=== PATIENT | female | born 1970 | race Caucasian/White ===

== ENCOUNTER 2017-03-26 11:45 | Emergency (ER) | payer OTHER ==
[~2017-03-26] VITALS: Ht 165.1 cm; Wt 79.0 kg
[~2017-03-26 11:45] MED LIST: FLUO20CA35 PO
[2017-03-26 11:52] VITALS: TEMP 37; Ht 165.1 cm; Wt 79.0 kg
[2017-03-26] MEDS ORDERED: SODIUM CHLORIDE 0.9% 1000ML 1,000 ML IV STA (12:17)
[2017-03-26 12:58] LABS: BASO % 0.9 %; BASO ABS # 0.05 K/uL (0-0.2); COMPLETE YES; EOS % 2.9 %; HEMATOCRIT 41.6 % (37-47); IG% 0.2 %; LYMPH % 37.8 %; LYMPH ABS # 2.21 K/uL (1.2-3.4); MEAN CELL VOLUME 93.5 fL (80-100); MEAN CORPUSCULAR HEMOGLOBIN 32.4 pg (25-34); MEAN CORPUSCULAR HGB CONC 34.6 g/dl (32-36); MEAN PLATELET VOLUME 9.7 fL (7.4-10.4); MONO % 8.4 %; NEUT % 49.8 %; PLATELET COUNT 283 K/uL (130-400); RED BLOOD COUNT 4.45 M/uL (4.2-5.4); WHITE BLOOD COUNT 5.84 K/uL (4.8-10.8)
[2017-03-26 13:07] LABS: PROTHROMBIN TIME (PATIENT) 10.3 SECONDS (9.0-12.0)
--- NOTE | 2017-03-26 13:10 | DIAGNOSTIC IMAGING REPORT ---
CT OF THE HEAD WITHOUT CONTRAST CLINICAL HISTORY: Headache. COMPARISON STUDY: No previous studies for comparison. CT DOSE: 638.56 mGycm TECHNIQUE: Helical axial images of the head were obtained without IV contrast. Automated exposure control was utilized for the study. A dose lowering technique was utilized adhering to the principles of ALARA. FINDINGS: No acute intracranial hemorrhage, midline shift or mass effect is present. Ventricular system is normal. Basilar cisterns are patent. There are no extra-axial collections. Brennan-white differentiation is maintained. There are no findings to suggest acute dural sinus thrombosis or acute territorial infarct. There are no significant calvarial abnormalities. Visualized portions of the sinuses and mastoid air cells are clear. IMPRESSION: No acute intracranial findings. Electronically signed by: South Luciano M.D. 03/26/2017 1:09 PM Dictated Date/Time: 03/26/2017 12:59 PM
[2017-03-26 13:15] LABS: CALCIUM 9.3 mg/dl (8.5-10.1); CREATININE 0.95 mg/dl (0.60-1.20); POTASSIUM 3.6 mmol/L (3.5-5.1)
[2017-03-26] MEDS ORDERED: XYLOCAINE 1%/SOD BICARB 20 ML VIAL INFIL ONE (13:41)
[2017-03-26 13:50] LABS: LYME DISEASE AB IGG NEG (NEG); LYME DISEASE AB IGM NEG (NEG)
[2017-03-26] MEDS ORDERED: DiphenhydrAMINE HCL 50 MG/ML VIAL IV STA (13:53)
[2017-03-26] MEDS ORDERED: PROCHLORPERAZINE 5 MG/ML 2 ML VIAL IV STA (13:53)
[2017-03-26 14:36] LABS: CSF CHEMISTRY TUBE # 2
[2017-03-26 14:48] LABS: CSF APPEARANCE CLEAR; CSF COLOR COLORLESS; CSF XANTHOCHROMIC NO XANTHOCHROMIA
[2017-03-26 14:55] LABS: CSF TOTAL PROTEIN 25.7 mg/dl (15.0-45.0)
[2017-03-26 15:39] VITALS: BP 138/74; PULSE 58; O2SAT 99
--- NOTE | 2017-03-26 19:18 | EMERGENCY ROOM VISIT NOTE ---
History Report prepared by Coby: Arnoldo Garrett Under the Supervision of: Dr. Charlie Peña M.D. First contact with patient: 11:59 Chief Complaint: HEADACHE Stated Complaint: HEADACHE FOR DAYS History of Present Illness The patient is a 46 year old female who presents to the Emergency Room with complaints of an intermittent headache that began 8 days ago. This has never happened to her before and she denies any past medical history of migraines. At this time, the patient was getting ready for bed when she suddenly experienced a global headache that "hit like lightning." She also was experiencing sensitivity to light and sound. With Ibuprofen and controlled breathing, she was able to go to sleep 45 minutes later. The next day, her headache improved to a dull sensation to the left side of her head that was not nearly as bad as the day before. This sensation then went away in the evening and she was headache free on Sunday. She then started to have another dull headache on Sunday that subsided afternoon. She was headache free on Sunday, and then it happened to her again on Sunday with her symptoms still being present currently. She believes that her headaches are worsened by yelling or bending over. She denies any fevers, vomiting, numbness, weakness, trouble with her speech, or trouble walking. She notes that she received a workup at her PCP office 2 months ago secondary to palpitations that was negative. She received an ECG that was negative for any cardiac abnormalities. They noted that she was borderline hypertensive and experiencing menopause. Her last menstrual period was over 1 year ago. She denies any other medical problems or current medications. Source of History: patient Onset: 8 days ago Position: head Symptom Intensity: moderate Quality: dull Timing: intermittent Modifying Factors (Worsening): movement (bending over) Associated Symptoms: No fevers, No vomiting, No weakness, No numbness Note: She denies any trouble with her speech or trouble walking. Review of Systems See HPI for pertinent positives & negatives. A total of 10 systems reviewed and were otherwise negative. Past Medical & Surgical Medical Problems: (1) Borderline hypertension Family History Patient reports no known family medical history. Social History Smoking Status: Current Some Day Smoker Smokeless Tobacco Use: No Drug Use: none Marital Status: single Housing Status: lives with family Occupation Status: employed Current/Historical Medications No Active Prescriptions or Reported Meds Allergies Coded Allergies: No Known Allergies (Verified , 01/18/10) Physical Exam Vital Signs Date Time Temp Pulse Resp B/P (MAP) Pulse Ox O2 Delivery O2 Flow Rate FiO2 03/26/17 15:39 58 18 138/74 99 03/26/17 14:50 66 18 153/95 98 Room Air 03/26/17 11:52 37.0 66 18 155/96 98 Room Air Physical Exam Constitutional: Vital signs reviewed. Eyes: Pupils are equal round reactive to light. Conjunctiva are noninjected. No papilledema bilaterally. ENT: Pharynx is clear without erythema or exudate. Mucous membranes are moist. Neck supple without meningeal signs. Respiratory: Clear to auscultation bilaterally. Breath sounds are equal bilaterally. Cardiovascular: Regular rate and rhythm. No rubs or gallops. GI: Soft, nondistended and nontender. Bowel sounds are present. Musculoskeletal: No peripheral edema. No lower extremity tenderness. Integumentary: No cyanosis. Neurological: The patient is awake and alert. Cranial nerves II-XII are intact. Motor is 5 out of 5 all extremities. Sensation is intact to light touch all extremities. Normal speech. No pronator drift. Psychiatric: Normal affect. Medical Decision & Procedures ER Provider Diagnostic Interpretation: Radiology results as stated below per my review and the radiologist's interpretation: CT OF THE HEAD WITHOUT CONTRAST CLINICAL HISTORY: Headache. COMPARISON STUDY: No previous studies for comparison. CT DOSE: 638.56 mGycm TECHNIQUE: Helical axial images of the head were obtained without IV contrast. Automated exposure control was utilized for the study. A dose lowering technique was utilized adhering to the principles of ALARA. FINDINGS: No acute intracranial hemorrhage, midline shift or mass effect is present. Ventricular system is normal. Basilar cisterns are patent. There are no extra-axial collections. Brennan-white differentiation is maintained. There are no findings to suggest acute dural sinus thrombosis or acute territorial infarct. There are no significant calvarial abnormalities. Visualized portions of the sinuses and mastoid air cells are clear. IMPRESSION: No acute intracranial findings. Electronically signed by: [place] Luciano M.D. 03/26/2017 1:09 PM Dictated Date/Time: 03/26/2017 12:59 PM Laboratory Results 03/26/17 12:35 Red Blood Count 4.45, Mean Corpuscular Volume 93.5, Mean Corpuscular Hemoglobin 32.4, Mean Corpuscular Hemoglobin Concent 34.6, Mean Platelet Volume 9.7, Neutrophils (%) (Auto) 49.8, Lymphocytes (%) (Auto) 37.8, Monocytes (%) (Auto) 8.4, Eosinophils (%) (Auto) 2.9, Basophils (%) (Auto) 0.9, Neutrophils # (Auto) 2.91, Lymphocytes # (Auto) 2.21, Monocytes # (Auto) 0.49, Eosinophils # (Auto) 0.17, Basophils # (Auto) 0.05 03/26/17 12:35 Test 03/26/17 12:15 03/26/17 12:35 03/26/17 13:48 Urine Test NEG (NEG) White Blood Count 5.84 K/uL (4.8-10.8) Red Blood Count 4.45 M/uL (4.2-5.4) Hemoglobin 14.4 g/dL (12.0-16.0) Hematocrit 41.6 % (37-47) Mean Corpuscular Volume 93.5 fL (80-100) Mean Corpuscular Hemoglobin 32.4 pg (25-34) Mean Corpuscular Hemoglobin Concent 34.6 g/dl (32-36) Platelet Count 283 K/uL (130-400) Mean Platelet Volume 9.7 fL (7.4-10.4) Neutrophils (%) (Auto) 49.8 % Lymphocytes (%) (Auto) 37.8 % Monocytes (%) (Auto) 8.4 % Eosinophils (%) (Auto) 2.9 % Basophils (%) (Auto) 0.9 % Neutrophils # (Auto) 2.91 K/uL (1.4-6.5) Lymphocytes # (Auto) 2.21 K/uL (1.2-3.4) Monocytes # (Auto) 0.49 K/uL (0.11-0.59) Eosinophils # (Auto) 0.17 K/uL (0-0.5) Basophils # (Auto) 0.05 K/uL (0-0.2) RDW Standard Deviation 40.9 fL (36.4-46.3) RDW Coefficient of Variation 12.0 % (11.5-14.5) Immature Granulocyte % (Auto) 0.2 % Immature Granulocyte # (Auto) 0.01 K/uL (0.00-0.02) Prothrombin Time 10.3 SECONDS (9.0-12.0) Prothromb Time International Ratio 1.0 (0.9-1.1) Activated Partial Thromboplast Time 26.9 SECONDS (21.0-31.0) Partial Thromboplastin Ratio 1.0 Anion Gap 9.0 mmol/L (3-11) Est Creatinine Clear Calc Drug Dose 77.7 ml/min Estimated GFR () 83.8 Estimated GFR (Non- 72.3 BUN/Creatinine Ratio 17.0 (10-20) Calcium Level 9.3 mg/dl (8.5-10.1) Lyme Disease IgG Antibody NEG (NEG) Lyme Disease IgM Antibody NEG (NEG) CSF Color COLORLESS CSF Appearance CLEAR CSF WBC 0 /uL (0-5) CSF RBC 0 /uL (0) CSF Xanthrochromic NO XANTHOCHROMIA CSF Cell Count Tube # 4 CSF Chemistry Tube # 2 CSF Glucose 57 mg/dl (40-70) CSF Total Protein 25.7 mg/dl (15.0-45.0) Laboratory results as reviewed by me. Medications Administered Medications (Trade) Dose Ordered Sig/Yeni Route Start Time Stop Time Status Last Admin Dose Admin Sodium Chloride 1,000 ml @ 999 mls/hr Q1H1M STAT IV 03/26/17 12:17 03/26/17 13:17 DC 03/26/17 12:43 999 MLS/HR Prochlorperazine Edisylate (Compazine Inj) 10 mg NOW STAT IV 03/26/17 13:53 03/26/17 13:55 DC 03/26/17 14:35 10 MG Diphenhydramine HCl (Benadryl Inj) 50 mg NOW STAT IV 03/26/17 13:53 03/26/17 13:55 DC 03/26/17 14:34 50 MG Procedure Lumbar Puncture Indication: Worst headache of the patient's life and evaluation for SAH. Verbal consent was obtained after the risks and benefits were explained, including but not limited to headache, bleeding/clotting, scarring, infection, pain, and nerve damage. At this time, the risks of the procedure are less than the risks of NOT performing the procedure. A time out was taken and the correct patient and site identified. The patient was placed in the upright position and the back was prepped with betadine and draped in the standard fashion. The L3 intervertebral space was identified, anesthetized locally with 1% lidocaine without epinephrine, and the spinal needle was inserted through the skin with the bevel parallel to the dural fibers. The needle was carefully advanced into the lumbar cistern and 4 tubes of clear CSF was obtained. The stylet was replaced and the needle was removed. A bandaid was placed and the patient was placed in the supine position. The patient tolerated the procedure well and there were no complications. ED Course 1159: The patient was evaluated in room C9. A complete history and physical exam was performed. 1217: Ordered Sodium Chloride 1000 ml @ 999 mls/hr IV 1341: Ordered Lidocaine HCl 20 ml INFIL 1345: I performed a lumbar puncture procedure at this time. Please see the procedure note for more information. 1353: Ordered Benadryl Inj 50 mg IV, Compazine Inj 10 mg IV 1457: The patient's IV infiltrated at this time. She still has a headache. 1527: The patient's headache is completely gone. I discussed her test results with her and the possibility for a post-LP headache. 1531: Upon reevaluation, the patient appeared to have improvement of her symptoms. I discussed tonight's findings with her. She verbalized agreement of the treatment plan. She was discharged home. Medical Decision This is a 46-year-old female who presents with the worst headache of her life. Differential diagnosis includes subarachnoid hemorrhage, cerebral aneurysm, intracranial mass, migraine headache, tension headache, cluster headaches. I did perform a limited focused review of portions of the patient's old chart on the electronic medical record. The patient has had no recent pertinent visits to this hospital. I did evaluate the patient as noted above. She is neurologically intact. She has had multiple headaches since 8 days ago. They are sudden in onset per her description and concerning for subarachnoid hemorrhage/sentinel bleed. I did discuss the possible diagnoses with her and stressed the risks and benefits of lumbar puncture after CT scanning. IV access was established. I did treat her with normal saline IV. I did treat the patient with normal saline IV. I did order and review the patient's blood work as noted in the electronic medical record. Lyme Testing is negative. Her white blood cell count is not elevated. I did order a CT of the head. I did review the images myself as well as the radiology report as described above. There is no evidence of intracranial abnormality. I did discuss the test results with the patient. After further discussion about lumbar puncture she did agree to the procedure. I did perform the lumbar puncture as described above. The CSF analysis showed no evidence of blood or xanthochromia or infection. The patient was treated with Compazine and Benadryl IV. On reassessment her headache is completely resolved. At this time I felt patient was safe for discharge and recommended close follow up with her doctor. She was given return instructions as outlined below. Medication Reconcilliation Current Medication List: was personally reviewed by me Blood Pressure Screening Patient's blood pressure: Elevated blood pressure Blood pressure disposition: Referred to PCP Impression Primary Impression: Acute headache Scribe Attestation The scribe's documentation has been prepared under my direct and personally reviewed by me in its entirety. I confirm that the note above accurately reflects all work, treatment, procedures, and medical decision making performed by me. Departure Information Dispostion Home / Self-Care Prescriptions No Active Prescriptions or Reported Meds Referrals No Doctor, Assigned (PCP) Forms HOME CARE DOCUMENTATION FORM, IMPORTANT VISIT INFORMATION Patient Instructions Headache Pain, My [facility] Additional Instructions You have been examined and treated today on an emergency basis only. This is not a substitute for, or an effort to provide, complete comprehensive medical care. It is impossible to recognize and treat all injuries or illnesses in a single emergency department visit. It is therefore important that you follow up closely with your physician. Call as soon as possible for an appointment. Return for worsening symptoms or if you develop fever, numbness or weakness on one side of your body, difficulties with your speech or walking, or any other concerning symptoms. Problem Qualifiers Primary Impression: Acute headache Headache type: unspecified Intractability: not intractable Qualified Codes : R51 - Headache
== END 2017-03-26 15:40 | disposition home or self-care (01) ==
LOC: C.EDB 11:46 → C.EDC 15:40
DX: R51 Headache (principal); R03.0 Elevated blood-pressure reading, without diagnosis of hypertension; F17.210 Nicotine dependence, cigarettes, uncomplicated

== ENCOUNTER → 2017-09-17 | Outpatient (CLI) | payer OTHER | END | disposition home or self-care (01) | LOC: C.PAPS 14:39 | PROVIDERS: ATTEND Physician Assistant | DX: Z12.4 Encounter for screening for malignant neoplasm of cervix (principal) ==

== ENCOUNTER → 2017-09-17 | Outpatient (CLI) | payer OTHER | END | disposition home or self-care (01) | LOC: C.LABSPEC 15:59 | PROVIDERS: ATTEND Physician Assistant | DX: Z11.3 Encounter for screening for infections with a predominantly sexual mode of transmission (principal) ==